=== PATIENT | female | born 2000 | race African-American/Black ===

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

== ENCOUNTER 2018-01-04 17:57 | Inpatient (IN) | payer OTHER, MEDICAID ==
[~2018-01-04] VITALS: Ht 170.2 cm; Wt 60.3 kg
[2018-01-04] MEDS ORDERED: ALUMINUM/MAGNESIUM/SIMETH 30 ML CUP PO PRN (21:30)
[2018-01-04] MEDS ORDERED: LORazepam 0.5 MG TAB PO PRN (21:30)
[2018-01-04] MEDS ORDERED: LORazepam 1 MG TAB PO PRN (21:30)
[2018-01-04] MEDS ORDERED: LORazepam 2 MG/ML VIAL IM PRN ×2 (21:30)
[2018-01-04 21:57] VITALS: BP 121/67; PULSE 101; RESP 18; TEMP 98.1; O2SAT 100
[2018-01-05 05:55] VITALS: BP 114/63; PULSE 97; RESP 16; TEMP 98; O2SAT 99
[2018-01-05 08:44] LABS: BICARBONATE 30.5 MEQ/L (21.0-32.0); BLOOD UREA NITROGEN 8 MG/DL (7-18); CALCIUM 9.3 MG/DL (8.5-10.1); CHLORIDE 100 MEQ/L (98-107); CHOLESTEROL 127 MG/DL (120-200); CREATININE 0.77 MG/DL (0.50-1.00); GLOMERULAR FILTRATION RATE 117 ML/MIN (>89); GLUCOSE,RANDOM 102 MG/DL (74-106); SODIUM (NA) 136 MEQ/L (136-145)
[2018-01-05 08:51] LABS: CHOLESTEROL/ HDL RATIO 1.96 RATIO; HDL CHOLESTEROL 64.7 MG/DL (40.0-60.0); LDL CHOLESTEROL 48 MG/DL (0-99); TRIGLYCERIDES 70 MG/DL (42-150)
[2018-01-05] MEDS: NICOTINE 21 MG/24 HR PATCH T-DERMAL SCH ×2 (09:00→11:30)
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
[2018-01-05 11:00] LABS: HEMOGLOBIN A1C 5.7 % (4.3-6.0)
[2018-01-05] MEDS ORDERED: NICOTINE 21 MG/24 HR PATCH T-DERMAL PRN (12:00)
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
[2018-01-05] MEDS ORDERED: LORazepam 2 MG/ML VIAL IM STA (17:00)
[2018-01-05 18:00] VITALS: BP 118/87; PULSE 87; RESP 17; TEMP 98.9; O2SAT 100
[2018-01-05] MEDS: SODIUM CHLOR 0.9% 1000 ML INJ 1,000 ML IV SCH (21:21)
[2018-01-06] MEDS: SODIUM CHLOR 0.9% 1000 ML INJ 1,000 ML IV SCH ×3 (05:07→21:26)
[2018-01-06 06:00] VITALS: BP 116/58; PULSE 82; RESP 17; TEMP 98; O2SAT 99
--- NOTE | 2018-01-06 07:22 | PD.CONS ---
HPI Service [facility] Consult Requested By Psychiatry Reason for Consult Medical Management Primary Care Physician No Primary Care Physician Diagnoses: History of Present Illness 17 years old female with the past medical history of ADHD, PTSD who was transferred under Meza Act from [facility] secondary to acute mood disorder, suicidal ideation as well as Altered mental status change due to Substance abuse. Patient was found to have elevated CK 1233 for which [facility] was consulted. Patient also reports engaging in 2 risk behavior having unprotected sex. She was recently diagnosed with STI and had in the past multiple PID. She denies any chest pain, SOB Review of Systems Except as stated in HPI: all other systems reviewed are Neg Past Family Social History Allergies: Coded Allergies: shrimp (Unverified Allergy, Unknown, 12/23/17) Past Medical History ADHD PTSD Asthma Seizure disorder? Past Surgical History No prior surgery Reported Medications See EMR Family History Noncontributory Social History smokes marijuana, and reports social alcohol intake Physical Exam Vital Signs Vital Signs Date Time Temp Pulse Resp B/P (MAP) Pulse Ox O2 Delivery O2 Flow Rate FiO2 01/06/18 06:00 98.0 82 17 116/58 (77) 99 01/05/18 18:00 98.9 87 17 118/87 (97) 100 Physical Exam GENERAL: This is a well-nourished, well-developed patient, in no apparent distress. SKIN: No rashes, ecchymoses or lesions. Cool and dry. HEAD: Atraumatic. Normocephalic. No temporal or scalp tenderness. EYES: Pupils equal round and reactive. Extraocular motions intact. No scleral icterus. No injection or drainage. ENT: Nose without bleeding, purulent drainage or septal hematoma. Throat without erythema, tonsillar hypertrophy or exudate. Uvula midline. Airway patent. NECK: Trachea midline. No JVD or lymphadenopathy. Supple, nontender, no meningeal signs. CARDIOVASCULAR: Regular rate and rhythm without murmurs, gallops, or rubs. RESPIRATORY: Clear to auscultation. Breath sounds equal bilaterally. No wheezes , rales, or rhonchi. GASTROINTESTINAL: Abdomen soft, non-tender, nondistended. No hepato-splenomegaly , or palpable masses. No guarding. MUSCULOSKELETAL: Extremities without clubbing, cyanosis, or edema. No joint tenderness, effusion, or edema noted. No calf tenderness. Negative Homans sign bilaterally. NEUROLOGICAL: Awake and alert. Cranial nerves II through XII intact. Motor and sensory grossly within normal limits. Five out of 5 muscle strength in all muscle groups. flat affect Laboratory Laboratory Tests Test 01/05/18 07:45 01/05/18 13:56 Blood Urea Nitrogen 8 Creatinine 0.77 Random Glucose 102 Calcium Level 9.3 Sodium Level 136 Potassium Level 3.9 Chloride Level 100 Carbon Dioxide Level 30.5 Anion Gap 6 Estimat Glomerular Filtration Rate 117 Hemoglobin A1c 5.7 Total Creatine Kinase 1233 Creatine Kinase MB 3.9 Creatine Kinase MB % 0.3 Triglycerides Level 70 Cholesterol Level 127 LDL Cholesterol 48 HDL Cholesterol 64.7 Cholesterol/HDL Ratio 1.96 Erythrocyte Sedimentation Rate 11 Ammonia 21 Vitamin B12 Level 780 Thyroid Stimulating Hormone 3rd Gen 2.000 Result Diagram: 01/05/18 0745 Assessment and Plan Assessment and Plan 17 years old female with Acute mood disorder Management per Psychiatry Continue with Meza Act Rhabdomyolysis Treat with Aggressive IVF hydration Monitor CK Substance abuse Advise against h/o STIs Check HIV DVT prophylaxis: Encourage ambulation Thank you for this Consultation Code Status Full code Discussed Condition With Patient Madhu Yates MD Jan 06, 2018 07:22
[2018-01-06 08:21] LABS: BICARBONATE 30.3 MEQ/L (21.0-32.0); CALCIUM 9.3 MG/DL (8.5-10.1); CREATININE 0.73 MG/DL (0.50-1.00)
[2018-01-06] MEDS: ACETAMINOPHEN 325 MG TAB PO PRN ×3 (10:00→22:13)
--- NOTE | 2018-01-06 10:48 | RADRPT ---
EXAM DATE/TIME: 01/06/2018 10:16 [place] COMPARISON: No previous studies available for comparison. INDICATIONS : Psychosis. MEDICAL HISTORY : None. SURGICAL HISTORY : None. ENCOUNTER: Initial ACUITY: 1 day PAIN SCORE: 0/10 LOCATION: Head. TECHNIQUE: Multiplanar, multisequence MRI of the brain was performed without contrast. FINDINGS: CEREBRUM: The ventricles are normal for age. No evidence of midline shift, mass lesion, hemorrhage or acute in farction. No extraaxial fluid collections are seen. The pituitary gland and suprasellar cistern are normal in configuration. WHITE MATTER: No significant signal abnormalities are seen in the white matter. POSTERIOR FOSSA: The cerebellum and brainstem are intact. The 4th ventricle is midline. The cerebellopontine angle is unremarkable. The cerebellar tonsils are normal in position. DIFFUSION IMAGING: No focal areas of restricted diffusion are seen. No evidence of acute infarction. EXTRACRANIAL: The visualized portions of the orbits and paranasal sinuses are unremarkable. CONCLUSION: Normal examination. Shay Wilson MD on January 06, 2018 at 10:47 Board Certified Radiologist. This report was verified electronically.
--- NOTE | 2018-01-06 11:37 | EKG ---
Date Performed: 01/05/2018 Time Performed: 14:27:25 PTAGE: 17 years EKG: Sinus rhythm WITH SINUS ARRHYTHMIA NORMAL ECG Since the prior tracing, there has been no significant change PREVIOUS TRACING : 12/03/2017 08.24 DOCTOR: Ines Olsen Interpretating Date/Time 01/06/2018 11:33:20
--- NOTE | 2018-01-06 12:03 | HHI.PYPN ---
Subjective Chief Complaint: Psychosis Remarks Patient seen and examined with nurse. Chart reviewed. Case discussed with nursing staff. Patient noted to have poor boundaries and was trying to hug other patients and even sad and another patient's lap. She required placement with a one-to-one sitter overnight because of her tendency to wander as it was feared that she might irritate some of the other, more agitated patients on the unit and come to harm in this way. On my examination this morning, the patient seems a little clearer. She is oriented 3. She says that she is feeling " less worried and more focused." She remains somewhat psychomotor slowed and internally preoccupied although she denies AVH. Some ongoing paranoia. She denies SI or HI. No physical complaints. She is agreeable to initiating a medication for the management of psychotic symptoms. Spoke with patient's mother/healthcare surrogate. We discussed workup so far and treatment and discharge plan. She is agreeable to initiation of Zyprexa for management of psychotic symptoms. Review of Systems ROS Limitations: Psychotic, Poor Historian Except as stated in HPI: all other systems reviewed are Neg Mental Status Examination Appearance: Disheveled (somewhat improved today) Consciousness: Alert Orientation: Person, Place, Date/Time Motor Activity: Normal gait, Other (besides some psychomotor slowing, no motor abnormalities noted. No hand tremor, no dystonia, no dyskinesia.) Speech: Slow Language: Adequate Fund of Knowledge: Inadequate Attention and Concentration: Easily Distracted Memory: Unremarkable Mood: Other ("less worried") Affect: Blunt Thought Process & Associations: Circumstantial Thought Content: Bizarre thinking, Delusional Hallucination Type: Other (appears internally stimulated) Delusion Type: Paranoid Suicidal Ideation: No (unreliable to contract for safety) Suicidal Plan: No Suicidal Intention: No Homicidal Ideation: No (unreliable to contract for safety) Homicidal Plan: No Homicidal Intention: No Insight: Poor Judgment: Poor Results Labs Item Value Date Time Erythrocyte Sedimentation Rate 11 mm/hr 01/05/18 1356 Ammonia 21 MCMOL/L 01/05/18 1356 Vitamin B12 Level 780 PG/ML 01/05/18 1356 Thyroid Stimulating Hormone 3rd Gen 2.000 uIU/ML 01/05/18 1356 Total Creatine Kinase 618 U/L H 01/06/18 0719 Estimat Glomerular Filtration Rate 124 ML/MIN 01/06/18 0719 First break psychosis workup so far unrevealing. MRI of the brain read as normal. CK downtrending. GFR intact. No electrolyte abnormalities. GILLIAN, RPR and HIV are still pending. EKG was read as sinus rhythm with a QTc of 380 ms, not prolonged. Vitals/IOs Vital Signs Date Time Temp Pulse Resp B/P (MAP) Pulse Ox O2 Delivery O2 Flow Rate FiO2 01/06/18 06:00 98.0 82 17 116/58 (77) 99 Intake and Output 01/06/18 01/06/18 01/07/18 08:00 16:00 00:00 Intake Total 240 ml 480 ml Balance 240 ml 480 ml Assessment & Plan Problem List: (1) Brief psychotic disorder ICD Codes: F23 - Brief psychotic disorder (2) Polysubstance abuse ICD Codes: F19.10 - Other psychoactive substance abuse, uncomplicated Assessment & Plan Initiated Zyprexa Zydis 10 mg at bedtime for management of psychosis. This could be titrated tomorrow and over the weekend to effect. Follow-up outstanding labs. Trend CK and continue IVF. Hospitalist input noted and appreciated. Continue one to one sitter for behavioral redirection, although this might be discontinued tomorrow. Continue to monitor on the medical psychiatric unit. Continue other medications and care as ordered. Justification for Cont. Inpt. Medication changes. Impairment in reality construction. Complicating condition , namely elevated CK. High risk for decompensation in less restrictive environment. Discharge Planning Pending psychiatric stabilization. Possible discharge after the weekend. Request HC Surrog/Guard Advoc?: Yes Luis Tyler MD Jan 06, 2018 12:03
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
[2018-01-06 18:43] VITALS: BP 128/81; PULSE 88; RESP 18; TEMP 98.3
[2018-01-06] MEDS: OLANZapine ODT 10 MG TAB PO SCH (21:26)
[2018-01-07] MEDS: SODIUM CHLOR 0.9% 1000 ML INJ 1,000 ML IV SCH ×2 (05:51→12:31)
[2018-01-07 06:00] VITALS: BP 111/56; PULSE 54; RESP 18; TEMP 97.5; O2SAT 99
[2018-01-07 12:39] LABS: ANA SCREEN NEG (NEG)
[2018-01-07] MEDS: ACETAMINOPHEN 325 MG TAB PO PRN (13:09)
--- NOTE | 2018-01-07 13:35 | HHI.PR ---
Subjective Remarks 17-year-old female who is crying and anxious today. She wants to go home but understands she is on Meza act due to suicidal ideation. Objective Vitals Vital Signs Date Time Temp Pulse Resp B/P (MAP) Pulse Ox O2 Delivery O2 Flow Rate FiO2 01/07/18 06:00 97.5 54 18 111/56 (74) 99 01/06/18 18:43 98.3 88 18 128/81 (97) I/O 01/06/18 01/06/18 01/06/18 01/07/18 01/07/18 01/07/18 07:00 15:00 23:00 07:00 15:00 23:00 Intake Total 240 ml 540 ml 2080 ml 877 ml 600 ml Balance 240 ml 540 ml 2080 ml 877 ml 600 ml Intake Oral 240 ml 540 ml 1080 ml 0 ml 600 ml IV Total 1000 ml 877 ml # Voids 1 4 1 Result Diagram: 01/06/18 0719 Objective Remarks GENERAL: Well-nourished, well-developed patient, tearful SKIN: Warm and dry. HEAD: Normocephalic. EYES: No scleral icterus. No injection or drainage. NECK: Supple, trachea midline. No JVD or lymphadenopathy. CARDIOVASCULAR: Regular rate and rhythm without murmurs, gallops, or rubs. RESPIRATORY: Breath sounds equal bilaterally. No accessory muscle use. GASTROINTESTINAL: Abdomen soft, non-tender, nondistended. EXTREMITIES: No cyanosis, or edema. NEUROLOGICAL: Awake, alert, and oriented x 3. Non-focal. A/P Problem List: (1) Brief psychotic disorder ICD Code: F23 - Brief psychotic disorder Assessment and Plan Acute mood disorder with suicidal ideation Patient has Meza acted Management per psychiatry Rhabdomyolysis CK is rapidly trending downward Expect full resolution within 1-2 days Follow-up CK value in 1-2 days Negative [place] Substance abuse Recommend avoiding habit-forming substances h/o STIs HIV negative RPR nonreactive DVT prophylaxis Patient is ambulatory, encourage ambulation Rene Sullivan MD Jan 07, 2018 13:35
--- NOTE | 2018-01-07 14:01 | HHI.PYPN ---
Subjective Chief Complaint: Psychosis Remarks Reviewed electronic medical record, labs, and discussed case with staff. Follow -up evaluation done in patient's room with nurse present. Staff reports patient has been attention seeking and manipulative with somatic complaints. Patient lying in bed. Her speech is clear although somewhat childlike. She states that she feels good. Still on one-to-one for multiple attempts at elopement, and seems to be internally stimulated. She reports that she slept well and she did eat breakfast this morning. She had a visitation from her family and she reports that went well also. Mental Status Examination Appearance: Appropriate Consciousness: Alert Orientation: Person, Place, Date/Time Motor Activity: Normal gait, Other (besides some psychomotor slowing, no motor abnormalities noted. No hand tremor, no dystonia, no dyskinesia.) Speech: Slow Language: Adequate Fund of Knowledge: Inadequate Attention and Concentration: Easily Distracted Memory: Unremarkable Mood: Good Affect: Blunt Thought Process & Associations: Circumstantial Thought Content: Bizarre thinking, Delusional Hallucination Type: Other (appears internally stimulated) Delusion Type: Paranoid Suicidal Ideation: No (unreliable to contract for safety) Suicidal Plan: No Suicidal Intention: No Homicidal Ideation: No (unreliable to contract for safety) Homicidal Plan: No Homicidal Intention: No Insight: Poor Judgment: Poor Results Labs Test 01/07/18 08:02 Total Creatine Kinase 333 U/L Creatine Kinase MB LESS THAN 0.5 NG/ML Creatine Kinase MB % 0.2 % Vitals/IOs Vital Signs Date Time Temp Pulse Resp B/P (MAP) Pulse Ox O2 Delivery O2 Flow Rate FiO2 01/07/18 06:00 97.5 54 18 111/56 (74) 99 Intake and Output 01/07/18 01/07/18 01/08/18 08:00 16:00 00:00 Intake Total 877 ml 600 ml Balance 877 ml 600 ml Assessment & Plan Problem List: (1) Brief psychotic disorder ICD Codes: F23 - Brief psychotic disorder (2) Polysubstance abuse ICD Codes: F19.10 - Other psychoactive substance abuse, uncomplicated Assessment & Plan Estimated LOS: Will continue with treatment plan as patient still appears to be internally stimulated. She is unable to contract for safety at this time. Patient will remain on unit until psychiatrically stabilized. Justification for Cont. Inpt. Moving this patient to a lower level of care would likely result in decompensation. Request HC Surrog/Guard Advoc?: Yes Josselyn Borges Jan 07, 2018 14:01
[2018-01-07 18:09] VITALS: BP 125/60; PULSE 67; RESP 18; TEMP 97.5; O2SAT 100
[2018-01-07] MEDS: OLANZapine ODT 10 MG TAB PO SCH (20:47)
[2018-01-08] MEDS: SODIUM CHLOR 0.9% 1000 ML INJ 1,000 ML IV SCH ×2 (05:51→13:51)
[2018-01-08 05:57] VITALS: BP 127/58; PULSE 51; RESP 17; TEMP 97.5; O2SAT 99
--- NOTE | 2018-01-08 15:20 | HHI.PYPN ---
Subjective Chief Complaint: Psychosis Remarks Patient was seen for psychiatric reevaluation along with nurse in charge [place]. The patient is calm, cooperative, pleasant. She is found coloring in a book, patient is very childlike, reports good mood, smiling often, in a good spirit, she says that she feels safe here, denies anhedonia, denies hopelessness , denies helplessness, she does not appear to be internally preoccupied and paranoid at this time, she is logical, coherent and relevant. Denies suicidal and homicidal ideation, denies visual and auditory hallucinations at this moment. The patient is compliant with medications, no significant side effects reported. Mental Status Examination Appearance: Appropriate Consciousness: Alert Orientation: Person, Place, Date/Time Motor Activity: Normal gait, Other (besides some psychomotor slowing, no motor abnormalities noted. No hand tremor, no dystonia, no dyskinesia.) Speech: Slow Language: Adequate Fund of Knowledge: Inadequate Attention and Concentration: Easily Distracted Memory: Unremarkable Mood: Good Affect: Blunt Thought Process & Associations: Circumstantial Thought Content: Bizarre thinking, Delusional Hallucination Type: Other (appears internally stimulated) Delusion Type: Paranoid Suicidal Ideation: No (unreliable to contract for safety) Suicidal Plan: No Suicidal Intention: No Homicidal Ideation: No (unreliable to contract for safety) Homicidal Plan: No Homicidal Intention: No Insight: Poor Judgment: Poor Results Labs Test 01/08/18 07:39 Total Creatine Kinase 201 U/L Creatine Kinase MB 0.6 NG/ML Creatine Kinase MB % 0.3 % Vitals/IOs Vital Signs Date Time Temp Pulse Resp B/P (MAP) Pulse Ox O2 Delivery O2 Flow Rate FiO2 01/08/18 05:57 97.5 51 17 127/58 (81) 99 Intake and Output 01/08/18 01/08/18 01/09/18 08:00 16:00 00:00 Intake Total 1519 ml 240 ml Balance 1519 ml 240 ml Assessment & Plan Problem List: (1) Brief psychotic disorder ICD Codes: F23 - Brief psychotic disorder Assessment & Plan: I will remove the one to one sister today and observe the patient without it, to see how she behaves. Continue current psychotropic regimen/ (2) Polysubstance abuse ICD Codes: F19.10 - Other psychoactive substance abuse, uncomplicated Assessment & Plan Estimated LOS: days Justification for Cont. Inpt. Patient has an elevated risk to decompensate at a lower level of care. Request HC Surrog/Guard Advoc?: Yes Davon Armenta MD Jan 08, 2018 15:20
--- NOTE | 2018-01-08 16:09 | HHI.PR ---
Subjective Remarks Pt seen and examined. VS reviewed. No acute events. Pt states she is feeling well. Denies any complaints. No CP, SOB, or muscular pain. Eating and drinking well. Objective Vital Signs Date Time Temp Pulse Resp B/P (MAP) Pulse Ox O2 Delivery O2 Flow Rate FiO2 01/08/18 05:57 97.5 51 17 127/58 (81) 99 01/07/18 18:09 97.5 67 18 125/60 (81) 100 I/O 01/07/18 01/07/18 01/07/18 01/08/18 01/08/18 01/08/18 07:00 15:00 23:00 07:00 15:00 23:00 Intake Total 877 ml 600 ml 2640 ml 1279 ml 480 ml Balance 877 ml 600 ml 2640 ml 1279 ml 480 ml Intake Oral 0 ml 600 ml 2640 ml 0 ml 480 ml IV Total 877 ml 1279 ml # Voids 1 2 3 Result Diagram: 01/06/18 0719 Objective Remarks GENERAL: WN, WD female laying comfortably in bed in NAD. SKIN: Warm and dry. HEENT: Pupils equal and round. MMM. NECK: Supple no tender LAD or JVD. HEART: RRR no m/r/g. LUNGS: CTAB without wheezes or crackles. ABDOMEN: Soft, NT, ND. EXTREMITIES: No LE edema or calf tenderness. NEURO: Awake and alert. A/P Problem List: (1) Rhabdomyolysis ICD Code: M62.82 - Rhabdomyolysis Status: Resolved (2) Brief psychotic disorder ICD Code: F23 - Brief psychotic disorder (3) Polysubstance abuse ICD Code: F19.10 - Other psychoactive substance abuse, uncomplicated Assessment and Plan 17 YOAAF admitted under Meza Act for suicidal ideation found to have rhabdo. Acute mood disorder with suicidal ideation Management per psychiatry Rhabdomyolysis CK is rapidly trending downward Can D/C IV fluids Encourage PO Substance abuse Recommend avoiding habit-forming substances h/o STIs HIV negative RPR nonreactive DVT prophylaxis Patient is ambulatory, encourage ambulation Will sign off. Please reconsult if needed. Thank you. Suzanne Culp MD Jan 08, 2018 16:09
[2018-01-08] MEDS: ACETAMINOPHEN 325 MG TAB PO PRN (17:10)
[2018-01-08 18:00] VITALS: BP 113/59; PULSE 59; RESP 17; TEMP 97.5; O2SAT 99
[2018-01-08] MEDS ORDERED: PADIMATE (CHAPSTICK) 4.5 GM TUBE TOPICAL PRN (18:30)
[2018-01-08] MEDS: OLANZapine ODT 10 MG TAB PO SCH (21:00)
[2018-01-09 06:09] VITALS: BP 115/76; PULSE 80; RESP 18; TEMP 98.1; O2SAT 95
--- NOTE | 2018-01-09 09:47 | HHI.PYPN ---
Subjective Chief Complaint: Psychosis Remarks Patient was seen today for psychiatric reevaluation, the patient is calm, cooperative, pleasant. Patient reports that she has been doing much better, she is in good spirits, smiling often. She is very childlike, at times she has some speech delay and blocking thought, but she usually answers of the questions , doesn't seem to be especially internally preoccupied or paranoid. She has been compliant with medications, nose and medical side effects reported. Mental Status Examination Appearance: Appropriate Consciousness: Alert Orientation: Person, Place, Date/Time Motor Activity: Normal gait, Other (besides some psychomotor slowing, no motor abnormalities noted. No hand tremor, no dystonia, no dyskinesia.) Speech: Slow Language: Adequate Fund of Knowledge: Inadequate Attention and Concentration: Easily Distracted Memory: Unremarkable Mood: Good Affect: Blunt Thought Process & Associations: Circumstantial Thought Content: Bizarre thinking, Delusional Hallucination Type: Other (appears internally stimulated) Delusion Type: Paranoid Suicidal Ideation: No (unreliable to contract for safety) Suicidal Plan: No Suicidal Intention: No Homicidal Ideation: No (unreliable to contract for safety) Homicidal Plan: No Homicidal Intention: No Insight: Poor Judgment: Poor Results Vitals/IOs Vital Signs Date Time Temp Pulse Resp B/P (MAP) Pulse Ox O2 Delivery O2 Flow Rate FiO2 01/09/18 06:09 98.1 80 18 115/76 (89) 95 Intake and Output 01/09/18 01/09/18 01/09/18 07:59 15:59 23:59 Intake Total 320 ml Balance 320 ml Assessment & Plan Problem List: (1) Brief psychotic disorder ICD Codes: F23 - Brief psychotic disorder Assessment & Plan: Continue current psychotropic regimen. Brief supportive psychotherapy provided. (2) Polysubstance abuse ICD Codes: F19.10 - Other psychoactive substance abuse, uncomplicated Assessment & Plan Estimated LOS: days Justification for Cont. Inpt. Patient has an elevated risk to decompensate at a lower level of care. Request HC Surrog/Guard Advoc?: Yes Davon Armenta MD Jan 09, 2018 09:47
[2018-01-09] MEDS: MAGNESIUM HYDROXIDE SUSP 30 ML CUP PO PRN ×2 (12:26→22:00)
[2018-01-09] MEDS: ACETAMINOPHEN 325 MG TAB PO PRN (12:36)
[2018-01-09 18:10] VITALS: BP 112/56; PULSE 65; RESP 17; TEMP 98.1; O2SAT 100
[2018-01-09] MEDS: OLANZapine ODT 10 MG TAB PO SCH (22:00)
[2018-01-10 05:08] VITALS: BP 105/58; PULSE 72; RESP 16; TEMP 99.5; O2SAT 98
[2018-01-10] MEDS ORDERED: ZYPR10TA PO (15:19)
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
--- NOTE | 2018-01-10 16:57 | HHI.PR ---
Subjective Remarks Patient seen and examined around 2 PM. Patient reports feeling all right. No bowel movement since before admission. Patient denies any abdominal pain. Denies any nausea or vomiting. Does report some abdominal distention. Laxatives ordered. Objective Vital Signs Date Time Temp Pulse Resp B/P (MAP) Pulse Ox O2 Delivery O2 Flow Rate FiO2 01/10/18 05:08 99.5 72 16 105/58 (74) 98 01/09/18 18:10 98.1 65 17 112/56 (74) 100 I/O 01/09/18 01/09/18 01/09/18 01/10/18 01/10/18 01/10/18 07:00 15:00 23:00 07:00 15:00 23:00 Intake Total 320 ml 1200 ml 480 ml Balance 320 ml 1200 ml 480 ml Intake Oral 320 ml 1200 ml 480 ml # Voids 3 4 1 Result Diagram: 01/06/18 0719 Objective Remarks GENERAL: Patient walking in hallway. Appears comfortable. SKIN: Warm and dry. HEAD: Normocephalic. EYES: No scleral icterus. No injection or drainage. NECK: Supple, trachea midline. No JVD. CARDIOVASCULAR: Regular rate and rhythm without murmurs, gallops, or rubs. RESPIRATORY: Breath sounds equal bilaterally. No accessory muscle use. GASTROINTESTINAL: Abdomen slightly distended. Nontender. Positive bowel sounds. MUSCULOSKELETAL: No cyanosis, or edema. BACK: Nontender without obvious deformity. No CVA tenderness. A/P Assessment and Plan 17 [id number] admitted under [place] Act for suicidal ideation found to have rhabdo. //Acute mood disorder with suicidal ideation Management per psychiatry //Rhabdomyolysis CK is rapidly trending downward Can D/C IV fluids Encourage PO //Substance abuse Recommend avoiding habit-forming substances //h/o STIs HIV negative RPR nonreactive //Constipation. Laxatives ordered. Await return of bowel function //DVT prophylaxis Patient is ambulatory, encourage ambulation Discharge Planning We will continue to monitor. Dmitry Baltazar MD Jan 10, 2018 16:57
[2018-01-10] MEDS ORDERED: MAGNESIUM HYDROXIDE SUSP 30 ML CUP PO ONE (17:15)
[2018-01-10] MEDS ORDERED: DOCUSATE SODIUM 50 MG/SENNA 8.6 MG TAB PO ONE (17:15)
[2018-01-10] MEDS ORDERED: SOD PHOSPHATE/SOD BIPHOSPHATE (ADULT) ENEMA 133ML RECTAL ONE (17:15)
== END 2018-01-10 17:30 | disposition home or self-care (01) | DRG 885 ==
LOC: H270 21:20 → H4EA 01-05 15:54
PROVIDERS: ADMIT Psychiatry & Neurology Psychiatry; ATTEND Psychiatry & Neurology Psychiatry
DX: F23 Brief psychotic disorder (principal); M62.82 Rhabdomyolysis; F19.10 Other psychoactive substance abuse, uncomplicated; F90.9 Attention-deficit hyperactivity disorder, unspecified type; F43.10 Post-traumatic stress disorder, unspecified; Z62.810 Personal history of physical and sexual abuse in childhood; K59.00 Constipation, unspecified
CPT/HCPCS: 70551; 76937; 80048; 80061; 82140; 82550; 82552; 82607; 83036; 84443; 85652; 86038; 86592; 86703; 93005; 95819; J2060; J7030